=== PATIENT | male | born 1955 | race Caucasian/White ===

== ENCOUNTER 2020-01-12 02:00 | Emergency (ER) | payer MEDICARE ==
[2020-01-12] MEDS ORDERED: Thiamine INJ* 100 MG, Folic Acid IV* 1 MG, Multiple Vitamin IV ADULT* 10 ML in NS 0.9% ... IV ONE (02:07)
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
[2020-01-12 02:47] LABS: ABS Basophils 0.1 10^3/ul (0-0.2); ABS Lymphocytes 0.9 10^3/ul (1.0-4.8); ABS Monocytes 0.6 10^3/ul (0-0.8); ABS Neutrophils 10.5 10^3/ul (1.5-7.7); Eosinophil % 0.4 %; Hematocrit 42 % (42-52); Hemoglobin 14.9 g/dL (14.0-18.0); Lymphocyte % 7.7 %; Mean Corpuscular HGB Conc 35 g/dL (31-36); Mean Corpuscular Hemoglobin 32 pg (27-31); Mean Corpuscular Volume 91 fL (80-94); Mean Platelet Volume 9.4 fL (7.4-10.4); Platelet Count 234 10^3/uL (150-450); Red Blood Count 4.61 10^6 /uL (4.18-5.48); Red Cell Distribution Width 13 % (10-15); White Blood Count 12.2 10^3/uL (3.5-10.8)
[2020-01-12 03:07] LABS: Albumin 4.4 g/dL (3.2-5.2); Anion Gap 6 mmol/L (2-11); CO2 Carbon Dioxide 33 mmol/L (22-32); Calcium 9.8 mg/dL (8.6-10.3); Chloride 94 mmol/L (101-111); Potassium 4.6 mmol/L (3.5-5.0); Sodium 133 mmol/L (135-145)
[2020-01-12 03:12] LABS: Troponin I 0.01 ng/mL (<0.03)
[2020-01-12 03:13] LABS: ALT 19 U/L (7-52); AST 18 U/L (13-39); Albumin/Globulin Ratio 1.4 (1-3); Alkaline Phosphatase 134 U/L (34-104); BUN/Creatinine Ratio 28.7 (8-20); Blood Urea Nitrogen 25 mg/dL (6-24); Creatine Kinase 276 U/L (10-223); EGFR African American 107.6 (>60); EGFR Non-African American 88.9 (>60); Globulin 3.2 g/dL (2-4); Glucose 396 mg/dL (70-100); Total Protein 7.6 g/dL (6.4-8.9)
[2020-01-12 03:14] LABS: Alcohol < 10 mg/dL (<10)
[2020-01-12 03:24] LABS: Urine Appearance Clear; Urine Bilirubin Negative (Negative); Urine Blood Negative (Negative); Urine Color Yellow; Urine Glucose 3+(>=500 mg/dL) (Negative); Urine Ketones Negative (Negative); Urine Nitrite Negative (Negative); Urine Protein 2+(100 mg/dL) (Negative); Urine Specific Gravity 1.026 (1.010-1.030); Urine Urobilinogen Negative (Negative)
[2020-01-12 03:26] LABS: Urine Bacteria Absent (Absent); Urine Red Blood Cell Trace(0-2/hpf) (Absent); Urine White Blood Cell Trace(0-5/hpf) (Absent)
[2020-01-12 03:46] LABS: Urine Benzodiazepine Screen None Detected (None Detect); Urine Opiates Screen None Detected (None Detect)
[2020-01-12 03:55] LABS: TSH (Thyroid Stimulating Horm) 0.63 mcIU/mL (0.34-5.60)
[2020-01-12] MEDS ORDERED: Insulin GLARGINE(*) 1 UNITS UNIT SUBCUT ONE (04:27)
[2020-01-12 04:46] VITALS: BP 150/77
[2020-01-12] MEDS ORDERED: Insulin ASPART (NF) 1 UNIT SUBCUT SCH (05:00)
== END 2020-01-12 05:10 | disposition home or self-care (01) ==
LOC: ED 02:00
DX: R41.82 Altered mental status, unspecified (principal); E11.9 Type 2 diabetes mellitus without complications
CPT/HCPCS: 36415; 70450; 80053; 80307; 80320; 81003; 81015; 82140; 82550; 83605; 84443; 84484; 85025; 87086; 93005; 96365; 96366; 99284; G0480; J3411